=== PATIENT | female | born 1940 | race Caucasian/White ===

== ENCOUNTER 2018-07-10 13:27 | Outpatient (CLI) | payer MEDICARE, BC ==
--- NOTE | 2018-07-10 15:03 | RAD ---
PA AND LATERAL CHEST: Date: 07/10/18 HISTORY: Pulmonary mass. COMPARISON: 04/26/13. FINDINGS: Cardiac silhouette and pulmonary vasculature are within normal limits. There is a mass-like opacity seen within the posterior aspect of the left lower lobe with slightly ir regular margins. This measures approximately 5.7 cm in maximal dimensions. No definite additional mas s is seen, although there is a questionable nodular density overlying the left mid lung zone. There i s mild increased interstitial density, probably related to mild chronic lung changes. No pleural effu parvez is seen. Vascular calcifications are seen in the thoracic aorta. There are degenerative changes in the spine. No other interval change. IMPRESSION: 1. Mass-like opacity left lower lobe. Further evaluation with CT scan thorax is recommended. 2. Mild chronic lung changes. CODE T. POS: [facility]
== END 2018-07-10 13:28 | disposition home or self-care (01) ==
LOC: CP 13:27
PROVIDERS: ATTEND Internal Medicine
DX: R91.8 Other nonspecific abnormal finding of lung field (principal); M06.9 Rheumatoid arthritis, unspecified
CPT/HCPCS: 71046; 94010; 94727; 94729

== ENCOUNTER 2018-07-21 14:04 | Outpatient (CLI) | payer MEDICARE, BC ==
[2018-07-21 15:42] LABS: Hemoglobin 14.1 g/dL (12.0-16.0); Mean Corpuscular HGB CONC 33.1 g/dL (32.0-36.0); Mean Corpuscular Hemoglobin 30.8 pg (27.0-31.0); Mean Corpuscular Volume 93.1 fL (78.0-98.0); Mean Platelet Volume 8.2 fL (7.4-10.4); Platelet Count 252 thou/uL (130-400); Red Blood Cell (RBC) Count 4.57 mill/uL (4.20-5.40); White Blood Cell (WBC) Count 6.1 thou/uL (4.8-10.8)
[2018-07-21 15:48] LABS: Prothrombin Time 13.6 SEC (12.0-14.7)
[2018-07-21 16:11] LABS: Anion Gap 12 mmol/L (10-20); BUN (Urea Nitrogen) 23 mg/dL (9.8-20.1); Calc. Creatinine Clearance 0 mL/min (70-130); Calcium 9.5 mg/dL (7.8-10.44); Carbon Dioxide 27 mmol/L (23-31); Chloride 102 mmol/L (98-107); Estimated GFR-MDRD 31; Glucose 255 mg/dL (83-110); Potassium 4.3 mmol/L (3.5-5.1); Sodium 137 mmol/L (136-145)
--- NOTE | 2018-07-22 17:43 | EKG ---
Test Reason : Blood Pressure : / mmHG Vent. Rate : 076 BPM Atrial Rate : 076 BPM P-R Int : 168 ms QRS Dur : 078 ms QT Int : 390 ms P-R-T Axes : 042 -66 032 degrees QTc Int : 438 ms Normal sinus rhythm Left anterior fascicular block Minimal voltage criteria for LVH, may be normal variant Anteroseptal infarct (cited on or before 26-APR-2013) Abnormal ECG When compared with ECG of 26-APR-2013 17:34, Sinus rhythm has replaced Junctional rhythm Questionable change in initial forces of Anterior leads Confirmed by DR. Elvis MILLAN ([id number]) on 07/22/2018 5:42:44 PM Referred By: DENISSE Confirmed By:DR. Elvis MILLAN
== END 2018-07-21 14:05 | disposition home or self-care (01) ==
LOC: LABBT 14:04
PROVIDERS: ATTEND Thoracic Surgery (Cardiothoracic Vascular Surgery)
DX: Z01.818 Encounter for other preprocedural examination (principal); R91.8 Other nonspecific abnormal finding of lung field
CPT/HCPCS: 80048; 85027; 85610; 85730; 86850; 86900; 86901; 93005; 93010

== ENCOUNTER 2018-07-21 14:30 | Inpatient (IN) | payer MEDICARE, BC ==
[2018-07-22] MEDS ORDERED: CEFAZOLIN/Water 2 GM/20 ML SYRINGE ONE (06:23)
[2018-07-22] MEDS ORDERED: Bupivacaine/Epinephrine 0.25% 30 ML VIAL ONE (06:30)
[2018-07-22] MEDS ORDERED: Fentanyl 100 MCG/2 ML VIAL ONE ×4 (06:30→11:30)
[2018-07-22] MEDS ORDERED: Midazolam HCl 2 mg/2 ml Vial ONE (06:30)
[2018-07-22] MEDS ORDERED: Lidocaine 1% w/Epinephrine 1:100K 30 ML VIAL ONE (08:20)
[2018-07-22] MEDS ORDERED: Promethazine HCl 25 MG/ML VIAL SLOW IVP PRN ×2 (10:31→11:14)
[2018-07-22] MEDS ORDERED: Ondansetron HCl/PF 4 MG/2 ML Vial IVP PRN ×3 (10:31→11:15)
[2018-07-22] MEDS ORDERED: HYDROcodone/Acetaminophen 5/325 mg Tablet PO PRN ×4 (10:31→11:15)
[2018-07-22] MEDS ORDERED: Fentanyl 100 MCG/2 ML VIAL SLOW IVP PRN ×2 (10:31)
[2018-07-22] MEDS ORDERED: Phenylephrine 10 MG/NS 250 ML 250 ML IVPB PRN (10:31)
[2018-07-22] MEDS ORDERED: Ketorolac Tromethamine 30 MG/ML VIAL IVP PRN ×2 (10:34→11:14)
[2018-07-22] MEDS ORDERED: Promethazine HCl 25 MG/ML VIAL IM PRN ×2 (11:14→11:15)
[2018-07-22] MEDS ORDERED: traMADol HCl 50 MG TAB PO PRN (11:15)
[2018-07-22] MEDS ORDERED: diphenhydrAMINE 50 MG/ML VIAL IM PRN (11:15)
[2018-07-22] MEDS ORDERED: fentaNYL Citrate/PF 1,250 MCG, Bupivacaine 25 ML in Sodium Chloride 0.9% 250 ML 200 ML EPIDURAL SCH (11:15)
[2018-07-22] MEDS ORDERED: Naloxone HCl 0.4 mg/ml Vial IV PRN (11:15)
[2018-07-22] MEDS ORDERED: Naloxone HCl 0.4 mg/ml Vial IVP PRN (11:15)
[2018-07-22] MEDS ORDERED: Promethazine HCl 25 MG SUPP PR PRN (11:15)
[2018-07-22] MEDS ORDERED: diphenhydrAMINE 50 MG/ML VIAL IVP PRN (11:15)
[2018-07-22] MEDS ORDERED: diphenhydrAMINE 25 MG CAP PO PRN (11:15)
[2018-07-22] MEDS ORDERED: Bupivacaine 0.25% 10 ML VIAL EPIDURAL PRN (11:15)
[2018-07-22] MEDS ORDERED: Zolpidem Tartrate 5 MG TAB PO PRN (11:15)
[2018-07-22] MEDS ORDERED: Hydrocerin (Eucerin) Cream 120 gm Jar TOP PRN (11:15)
--- NOTE | 2018-07-22 11:23 | OP ---
DATE OF PROCEDURE: 07/22/2018 PREOPERATIVE DIAGNOSIS: Left lower lobe mass. POSTOPERATIVE DIAGNOSIS: Left lower lobe mass. PROCEDURE: Left lower lobectomy. SURGEON: James Chand M.D. ANESTHESIA: General. ESTIMATED BLOOD LOSS: 200 mL. TRANSFUSION: None. PROCEDURE IN DETAIL: After adequate anesthesia had been obtained, the patient was placed in the righ t lateral decubitus position. Muscle sparing posterolateral thoracotomy was carried out and the sixt h interspace was chosen for entry. Following this, the patient's left lower lobe was adherent to the diaphragm. This was taken down with Bovie cryptographic machine operator including the parietal pleura on the diaphragm . Following this, the inferior pulmonary ligament was mobilized. At that time, the patient had note d to have a large mass. An incisional biopsy was performed and sent for frozen section and this was nondiagnostic. It was then elected to do a lobectomy, which was carried out. The patient had a christ rely calcified group of lymph nodes overlying the pulmonary vessels to the superior segment. This wa s tediously taken down, ultimately being able to fire the vascular load on this pair of vessels. Fol lowing this, the fissure was difficult to identify and was incomplete and 3 load of stapler green earle d were used to complete the fissure. Following this, the inferior pulmonary ligament was divided wit h a vascular stapler and then the remaining bronchus to the lower lobe. Part of the bronchus had bee n taken down with the green load and this had no air leak. Following this, an apical pleural tent wa s mobilized to allow for space concerns. Two chest tubes were then placed following which the ribs w ere reapproximated with #1 Catgut suture double stranded in a [id number] fashion x3. Muscle lay ers were loosely reapproximated in subcutaneous tissue and skin were closed in layers.
[2018-07-22] MEDS ORDERED: Ketorolac Tromethamine 30 MG/ML VIAL ONE (11:37)
[2018-07-22] MEDS ORDERED: hydrALAZINE 20 MG/ML VIAL ONE (11:37)
--- NOTE | 2018-07-22 12:48 | RAD ---
PORTABLE CHES: Date: 07/22/18 PROVIDED CLINICAL HISTORY: Status post thoracotomy. COMPARISON: 07/10/18. FINDINGS: Interval placement of left-sided chest tube. Cardiac and mediastinal silhouette is not well evaluated due to patient rotation. Additional left-sided chest tube is noted overlying the left lower chest. L inear parenchymal opacity is seen at the right lung base suggesting volume loss. Evaluation for pleur al fluid and pneumothorax is limited given the supine nature of the study. IMPRESSION: Left-sided chest tubes have been placed in the interim. POS: [facility]
[2018-07-22] MEDS: Sodium Chloride 0.9% 1,000 ML IV SCH ×2 (13:20→22:18)
[2018-07-22] MEDS: CEFAZOLIN/Water 2 GM/20 ML SYRINGE SLOW IVP SCH ×2 (14:42→22:18)
[2018-07-22] MEDS: Insulin Regular 300 UNITS/3 ML VIAL SC PRN ×2 (16:18→21:53)
[2018-07-22] MEDS ORDERED: Insulin Regular 300 UNITS/3 ML VIAL ONE (16:23)
--- NOTE | 2018-07-22 19:08 | CON ---
DATE OF CONSULTATION: 07/22/2018 Ms. Stanley is a pleasant woman who earlier this year was diagnosed with pneumonia and an incidental finding was a lung mass. Once she had recovered from her pneumonia, further workup with a lung mass was begun. PFTs preoperatively were normal. Today, she underwent a lobectomy for resection of this mass. We are consulted because of her postop presence in the Critical Care Unit. PAST MEDICAL HISTORY: 1. Remarkable for having an unremarkable chest radiograph 2 years ago. 2. History of rheumatoid arthritis. 3. History of hypertension. 4. History of cataract surgery. 5. History of a D and C. FAMILY HISTORY: Positive for lung cancer. SOCIAL HISTORY: She is nonsmoker, nondrinker. REVIEW OF SYSTEMS: 10 point review of system completed; not obtainable. She is somnolent postoperatively. She has an epidural in place. PHYSICAL EXAMINATION: VITAL SIGNS: Blood pressure is 136/75, heart rate 92, respiratory rate was in the teens. HEENT: Pupils are reactive. Sclerae is anicteric. GENERAL: She moves all extremities. LUNGS: Clear. HEART: Regular rhythm. S1 and S2 are normal. ABDOMEN: Soft and nontender. EXTREMITIES: Without clubbing, cyanosis, or edema. NEUROLOGIC: Grossly nonfocal. LABORATORY DATA: Preoperative electrolytes are normal. Preop creatinine was 1.61, yesterday, was 1.28 in November, 1.36 in February, 1.44 in May. IMPRESSION: 1. Status post lobectomy for a lung mass. Pathology is pending. 2. Chronic kidney disease. 3. History of rheumatoid arthritis. PLAN: Continue with the normal post-lobectomy care with her epidural and chest tube suction. She has no air leak at this time. Chest radiograph shows chest tubes on the left. No pneumothorax was seen. This is a 50-minute consult, with greater than 50% of the time was spent on the unit coordinating care. [facility]
[2018-07-23 05:30] LABS: #Lymphocytes 0.8 thou/uL (1.20-3.40); #Monocytes 0.8 thou/uL (0.11-0.59); #Neutrophils 8.2 thou/uL (1.40-6.50); %Basophils 0.4 % (0.0-1.0); %Eosinophils 0.2 % (0.0-10.0); %Lymphocytes 8.4 % (21.0-51.0); %Monocytes 7.8 % (0.0-10.0); %Neutrophils 83.2 % (42.0-75.0); Hemoglobin 12.3 g/dL (12.0-16.0); Mean Corpuscular HGB CONC 33.1 g/dL (32.0-36.0); Mean Corpuscular Hemoglobin 31.2 pg (27.0-31.0); Mean Corpuscular Volume 94.3 fL (78.0-98.0); Mean Platelet Volume 7.9 fL (7.4-10.4); Platelet Count 213 thou/uL (130-400); RBC Distribution Width 14.1 % (11.5-14.5); Red Blood Cell (RBC) Count 3.94 mill/uL (4.20-5.40); White Blood Cell (WBC) Count 9.9 thou/uL (4.8-10.8)
[2018-07-23 05:55] LABS: Anion Gap 9 mmol/L (10-20); BUN (Urea Nitrogen) 23 mg/dL (9.8-20.1); Calc. Creatinine Clearance 48 mL/min (70-130); Calcium 7.7 mg/dL (7.8-10.44); Carbon Dioxide 24 mmol/L (23-31); Chloride 109 mmol/L (98-107); Estimated GFR-MDRD 46; Glucose 175 mg/dL (83-110); Potassium 4.5 mmol/L (3.5-5.1); Sodium 137 mmol/L (136-145)
[2018-07-23] MEDS: CEFAZOLIN/Water 2 GM/20 ML SYRINGE SLOW IVP SCH (06:39)
--- NOTE | 2018-07-23 08:15 | RAD ---
CHEST ONE VIEW: History: Status post thoracotomy. Comparison: 07-22-18 FINDINGS: Single upright chest redemonstrates a left sided chest tube. Worsening opacification in the lung pare nchyma. Stable configuration of the cardiac silhouette. Definite left sided pneumothorax is not appre ciated. IMPRESSION: Worsening opacification of the lung parenchyma. POS: [facility]
[2018-07-23] MEDS: Atorvastatin Calcium 20 MG TAB PO SCH (08:17)
[2018-07-23] MEDS: Acetaminophen 1,000 MG in Premix Bag 1 BAG IVPB SCH ×3 (11:39→23:40)
[2018-07-23] MEDS: Bupivacaine 10 ML in Sodium Chloride 0.9% 90 ML EPIDURAL SCH (12:21)
[2018-07-23] MEDS: Insulin Regular 300 UNITS/3 ML VIAL SC PRN ×2 (12:23→17:02)
--- NOTE | 2018-07-23 13:50 | PRG ---
DATE OF SERVICE: 07/23/2018 SERVICE: Pulmonary Medicine. INTERVAL HISTORY: The patient is doing fine from a respiratory standpoint. In the postop period, saqib crespo has had significant pain. Otherwise, there has not been much output from the chest tubes. She den ies any nausea or vomiting. She does have some pleuritic chest discomfort. Otherwise, there has bee n no interval change to her condition. Hemodynamically, she has remained stable and nursing reports no overnight events. PHYSICAL EXAMINATION: VITAL SIGNS: Afebrile, pulse 77, blood pressure 156/81, respirations 15, saturation 100% on 3 liters nasal cannula. HEENT: Normocephalic, atraumatic. Sclerae are white. Conjunctivae are pink. Oral mucosa is moist without lesions. LUNGS: Decent air entry. There is no prolonged expiratory phase. Crackles and rhonchi are present in the left lung. There are no crackles or rhonchi present on the right. HEART: Normal rate, regular. ABDOMEN: Soft, nontender, nondistended. Bowel sounds are positive. MUSCULOSKELETAL: No cyanosis or clubbing. There is no pitting in the bilateral lower extremities. NEUROLOGIC: Grossly nonfocal. LABORATORY DATA: WBC 9.9, hemoglobin 12.3, platelets 213,000. Creatinine 1.13, improved compared to prior. Basic metabolic profile is otherwise unremarkable. Blood sugar ranges from 166-221. Calciu m 7.7. IMAGING: Chest x-ray demonstrates chest tube x2 in the left. There is significant rotation. There is good aeration in the bilateral chest. No obvious pneumothorax is present. ASSESSMENT: 1. Pulmonary mass, status post left lobectomy with thoracotomy, postoperative day 1. 2. Rheumatoid arthritis. 3. Acute hypoxic respiratory failure, stable. DISCUSSION AND PLAN: The patient will remain in the ICU. Once she stops putting fluid from the ches t tube, these things will be removed. We will continue focusing our efforts on mobilizing the patien t. Currently, she has no obvious evidence of systemic inflammatory response. Pulmonary will continu e to follow along while she remains in this location. We will increase the amount of insulin we give her slightly.
[2018-07-23] MEDS ORDERED: hydrALAZINE 20 MG/ML VIAL SLOW IVP PRN (17:27)
[2018-07-23] MEDS ORDERED: Amlodipine 5 MG TAB PO SCH (17:30)
[2018-07-23] MEDS: Enoxaparin Sodium 30 MG/0.3 ML SYRINGE SC SCH (22:19)
[2018-07-24] MEDS: Bupivacaine 10 ML in Sodium Chloride 0.9% 90 ML EPIDURAL SCH ×2 (02:06→14:44)
[2018-07-24] MEDS: Acetaminophen 1,000 MG in Premix Bag 1 BAG IVPB SCH ×2 (05:27→12:53)
[2018-07-24] MEDS ORDERED: hydrALAZINE 10 MG TAB PO PRN (05:36)
[2018-07-24] MEDS ORDERED: Amlodipine 5 MG TAB PO SCH (09:00)
[2018-07-24] MEDS: Atorvastatin Calcium 20 MG TAB PO SCH (09:15)
[2018-07-24] MEDS ORDERED: Methotrexate Sodium 2.5 MG TAB PO SCH (11:15)
[2018-07-24] MEDS ORDERED: Donepezil HCl 5 MG TAB PO SCH (13:15)
--- NOTE | 2018-07-24 13:58 | PRG ---
DATE OF SERVICE: 07/24/2018 SERVICE: Pulmonary Medicine. INTERVAL HISTORY: The patient is doing great from a respiratory standpoint. That being said, she wa s confused last night. She is having some hallucinations and she is not certain about what the situa tion is or where she is. There has been no significant other changes to her condition. She indicate s not have any chest discomfort or shortness of breath at this point. Nursing reports no overnight e vents. PHYSICAL EXAMINATION: VITAL SIGNS: Afebrile, pulse 91, blood pressure 158/79, respirations 18, saturation 94% on room air. GENERAL: Patient is awake and alert, in no apparent distress. LUNGS: Decent air entry. There are no crackles present in bibasilar regions. HEART: Normal rate, regular. ABDOMEN: Soft, nontender, nondistended. Bowel sounds positive. MUSCULOSKELETAL: No cyanosis or clubbing. There is no pitting in the bilateral lower extremities. NEUROLOGIC: Grossly nonfocal. LABORATORY DATA: Blood sugars ranged from 151-214. Acid fast smear is negative to date. ASSESSMENT: 1. Pulmonary mass, status post left lower lobectomy using thoracotomy, postop day #2. 2. Rheumatoid arthritis. 3. Acute hypoxic respiratory failure, resolved. 4. Delirium superimposed on dementia. DISCUSSION AND PLAN: We will minimize our interventions with the patient. We can get rid of the oxy gen cannula today. Hopefully, the chest tube will come out soon. She is not eating enough fluid. W e supplement her hydration with half normal saline at 50 mL per hour. Physical therapy will be invol evangelist and will try to get her into a chair a couple times on a daily basis. Distractions in night will be minimized. Pulmonary and Critical Care will continue to follow along for the time being.
[2018-07-24] MEDS: Sodium Chloride 0.45% 1,000 ML IV SCH (14:50)
[2018-07-24] MEDS: Acetaminophen 500 MG TAB PO SCH (18:04)
[2018-07-24] MEDS: Insulin Regular 300 UNITS/3 ML VIAL SC PRN (18:13)
[2018-07-24 18:57] VITALS: BMI 27.2
[2018-07-24] MEDS: traMADol HCl 50 MG TAB PO PRN (21:53)
[2018-07-24] MEDS: Amlodipine 5 MG TAB PO SCH (21:53)
[2018-07-24] MEDS: Enoxaparin Sodium 30 MG/0.3 ML SYRINGE SC SCH (21:54)
[2018-07-25] MEDS: Acetaminophen 500 MG TAB PO SCH ×5 (00:02→23:38)
[2018-07-25] MEDS: Bupivacaine 10 ML in Sodium Chloride 0.9% 90 ML EPIDURAL SCH (04:25)
[2018-07-25] MEDS ORDERED: Donepezil HCl 5 MG TAB PO SCH (09:00)
[2018-07-25] MEDS ORDERED: OSTERA PO SCH (09:00)
[2018-07-25] MEDS: Atorvastatin Calcium 20 MG TAB PO SCH (09:57)
[2018-07-25] MEDS: Donepezil HCl 5 MG TAB PO SCH (09:58)
[2018-07-25] MEDS: Folic Acid 1 MG TAB PO SCH (09:58)
[2018-07-25] MEDS: Amlodipine 5 MG TAB PO SCH ×2 (09:58→21:58)
[2018-07-25] MEDS: Sodium Chloride 0.45% 1,000 ML IV SCH (10:04)
--- NOTE | 2018-07-25 12:06 | PRG ---
DATE OF SERVICE: 07/25/2018 SERVICE: Pulmonary Medicine INTERVAL HISTORY: The patient is doing fine from a respiratory standpoint. She denies any current c hest pain, nausea, vomiting, shortness of breath, fevers or chills. Her mentation is much improved. She continues to have a chest tube. PHYSICAL EXAMINATION: VITAL SIGNS: Afebrile, pulse 92, blood pressure 160/65, respirations 18, saturation 82% on room air. GENERAL: The patient is awake, alert, in no apparent distress. LUNGS: Good air entry bilaterally with no prolonged expiratory phase. There is no wheezing, rhonchi . There are some crackles present. HEART: Normal rate, regular. ABDOMEN: Soft, nontender, nondistended. Bowel sounds are positive. MUSCULOSKELETAL: No cyanosis or clubbing. No pitting in the bilateral lower extremities. NEUROLOGIC: Grossly nonfocal. LABORATORY DATA: WBC 9.9, hemoglobin 12.3, platelets 213,000. Blood sugar ranges from 151-187. Cul tures are negative to date. Pathology is currently pending. ASSESSMENT: 1. Pulmonary mass, status post left lower lobectomy. 2. Thoracotomy, postoperative day #3. 3. Rheumatoid arthritis. 4. Acute hypoxic respiratory failure. 5. Delirium, superimposed on dementia. DISCUSSION AND PLAN: Since her appetite has improved, I am going to discontinue her IV fluids. We a re waiting for the output to decrease so that the chest tube can be removed. Pulmonary Critical Care will continue to follow along in this location.
[2018-07-25] MEDS: Insulin Regular 300 UNITS/3 ML VIAL SC PRN ×3 (12:36→22:09)
[2018-07-25] MEDS ORDERED: Furosemide 40 MG TAB PO SCH (13:00)
[2018-07-25] MEDS: traMADol HCl 50 MG TAB PO PRN ×2 (16:07→21:57)
[2018-07-25] MEDS: Enoxaparin Sodium 30 MG/0.3 ML SYRINGE SC SCH (21:58)
[2018-07-26 05:40] LABS: Anion Gap 11 mmol/L (10-20); BUN (Urea Nitrogen) 23 mg/dL (9.8-20.1); Calc. Creatinine Clearance 52 mL/min (70-130); Calcium 8.4 mg/dL (7.8-10.44); Carbon Dioxide 25 mmol/L (23-31); Chloride 99 mmol/L (98-107); Estimated GFR-MDRD 50; Glucose 131 mg/dL (83-110); Potassium 3.4 mmol/L (3.5-5.1); Sodium 132 mmol/L (136-145)
[2018-07-26] MEDS: Acetaminophen 500 MG TAB PO SCH ×2 (05:56→11:28)
--- NOTE | 2018-07-26 07:45 | RAD ---
PORTABLE CHEST: Date: 07/26/18 PROVIDED CLINICAL HISTORY: Post lobectomy. FINDINGS: Comparison made with the study dated 07/23/18. Interval removal of left-sided chest tubes. Cardiac and mediastinal silhouette is unchanged in appear ance. There is pleural based density involving the lateral aspect of the left hemithorax. Right lung appears clear. There is no evidence for pneumothorax. Parenchymal opacity at the left lung base is kc spected. IMPRESSION: Left hemithoracic pleural and parenchymal opacity. Follow-up recommended. POS: [facility]
[2018-07-26] MEDS: traMADol HCl 50 MG TAB PO PRN (08:43)
[2018-07-26] MEDS: Amlodipine 5 MG TAB PO SCH ×2 (08:44→20:13)
[2018-07-26] MEDS: Folic Acid 1 MG TAB PO SCH (08:44)
[2018-07-26] MEDS: Atorvastatin Calcium 20 MG TAB PO SCH (08:44)
[2018-07-26] MEDS: Donepezil HCl 5 MG TAB PO SCH (08:44)
[2018-07-26] MEDS: Insulin Regular 300 UNITS/3 ML VIAL SC PRN (12:20)
[2018-07-26] MEDS ORDERED: predniSONE 20 MG TAB PO SCH (15:00)
[2018-07-26] MEDS ORDERED: Potassium Chloride 20 MEQ TAB PO SCH (15:00)
--- NOTE | 2018-07-26 15:04 | PRG ---
DATE OF SERVICE: 07/26/2018 SERVICE: Pulmonary Medicine. INTERVAL HISTORY: The patient is doing great from a respiratory standpoint. She got her chest tubes removed yesterday. This significantly improved her discomfort. She is able to walk to just past th e door. She had to sit down and rest and then was subsequently able to walk back to her room. She d enies any fevers or chills. There are no significant overnight events. She was a little hypoxemic e arlier and she started having increasing sputum production of thick yellow mucus. PHYSICAL EXAMINATION: VITAL SIGNS: Afebrile, pulse 84, blood pressure 104/69, respirations 14, saturation 96% on 1.5 liter s nasal cannula. GENERAL: The patient is awake and alert, in no apparent distress. LUNGS: Decent air entry. Dependent crackles are present. Some rhonchi are present. She has a hard time clearing them with cough. There is no prolonged expiratory phase or wheezing appreciated. HEART: Normal rate, regular. ABDOMEN: Soft, nontender, nondistended. Bowel sounds are positive. MUSCULOSKELETAL: No cyanosis or clubbing. There is no pitting in the bilateral lower extremities. NEUROLOGIC: Grossly nonfocal. LABORATORY DATA: Sodium 132, down trending and potassium 3.4. Creatinine 1.05 and stable. Basic nv tabolic profile is otherwise unremarkable. Blood sugar ranges from 156-213. Culture results remain negative to date. IMAGING: Chest x-ray demonstrates volume loss on the left. There is a pleural effusion on the left side. Chest tube has been removed with no obvious pneumothorax present. ASSESSMENT: 1. Pulmonary mass, status post left lower lobectomy. 2. Thoracotomy, postop day 3. 3. Rheumatoid arthritis. 4. Acute hypoxic respiratory failure. 5. Delirium, superimposed on dementia. DISCUSSION AND PLAN: I will give the patient a 5-day course of prednisone and a p.o. antibiotic. Po tassium will be replaced today. We will continue focusing efforts on mobilizing the patient. Pulmon foreign Critical Care will continue to follow along. The patient will need to remain in house for the ti me being.
[2018-07-26] MEDS: Enoxaparin Sodium 30 MG/0.3 ML SYRINGE SC SCH (20:13)
[2018-07-26] MEDS: guaiFENesin ER 600 MG TAB PO SCH (20:13)
[2018-07-26] MEDS: Senokot 8.6 MG TAB PO SCH (21:02)
[2018-07-27] MEDS: Atorvastatin Calcium 20 MG TAB PO SCH (08:22)
[2018-07-27] MEDS: Amlodipine 5 MG TAB PO SCH ×2 (08:23→20:21)
[2018-07-27] MEDS: Folic Acid 1 MG TAB PO SCH (08:23)
[2018-07-27] MEDS: Donepezil HCl 5 MG TAB PO SCH (08:24)
[2018-07-27] MEDS: predniSONE 20 MG TAB PO SCH (08:24)
[2018-07-27] MEDS: guaiFENesin ER 600 MG TAB PO SCH ×2 (08:25→20:19)
[2018-07-27] MEDS: Senokot 8.6 MG TAB PO SCH ×2 (08:25→20:20)
[2018-07-27] MEDS: traMADol HCl 50 MG TAB PO PRN ×2 (08:26→20:19)
--- NOTE | 2018-07-27 08:47 | RAD ---
PORTABLE CHEST: Date: 07/27/18 PROVIDED CLINICAL HISTORY: Lobectomy. FINDINGS: Comparison with 07/26/18. Interval increase in left hemithoracic pleural and parenchymal opacity previously described. Right grayson ng remains clear. There is no evidence for pneumothorax. Cardiac and mediastinal silhouette is not de finitely changed in appearance. IMPRESSION: Increasing left hemithoracic pleural and parenchymal opacity. POS: [facility]
[2018-07-27] MEDS ORDERED: Furosemide 40 MG TAB PO SCH (13:00)
--- NOTE | 2018-07-27 16:16 | PRG ---
DATE OF SERVICE: 07/27/2018 SERVICE: Pulmonary Medicine. INTERVAL HISTORY: The patient is doing fine from a respiratory standpoint. She is breathing comfort ably. Her pain is dramatically improved and her strength is much better today. She was able to walk with physical therapy and nursing staff on three separate occasions today. She was able to walk ove r 100 feet this time around. She has no specific complaints otherwise. There has been no interval c hange to her condition. She is being considered for transition out of the hospital tomorrow. PHYSICAL EXAMINATION: VITAL SIGNS: Afebrile, pulse 85, blood pressure 140/81, respirations 16, saturation 95% on 2 liters nasal cannula. GENERAL: The patient is awake, alert, no apparent distress. LUNGS: Excellent air entry. Rhonchi are present, but clear with cough today. There is no prolonged expiratory phase. Minimal dependent crackles are present. HEENT: Normocephalic, atraumatic. Sclerae are white, conjunctivae pink. Oral mucosa is moist witho ut lesions. HEART: Normal rate, regular. ABDOMEN: Soft, nontender, nondistended. Bowel sounds are positive. MUSCULOSKELETAL: No cyanosis or clubbing. There is no pitting in the bilateral lower extremities. NEUROLOGIC: Grossly nonfocal. IMAGING: Chest x-ray demonstrates left-sided pleural effusion which is slightly increased in size. ASSESSMENT: 1. Pulmonary mass, status post left lower lobectomy. 2. Thoracotomy, postop day #4. 3. Rheumatoid arthritis. 4. Acute hypoxic respiratory failure, resolved. 5. Delirium, superimposed on dementia, improving. DISCUSSION AND PLAN: We will continue our supportive measures moving forward. We will continue her mobilization efforts. We will need to repeat a chest x-ray in the outpatient setting in 4-[address], if she has increasing respiratory distress, a thoracentesis can be considered. I will continue to follow along.
[2018-07-27] MEDS: Enoxaparin Sodium 30 MG/0.3 ML SYRINGE SC SCH (20:18)
[2018-07-28] MEDS: traMADol HCl 50 MG TAB PO PRN (05:30)
[2018-07-28] MEDS: Senokot 8.6 MG TAB PO SCH (08:44)
[2018-07-28] MEDS: Atorvastatin Calcium 20 MG TAB PO SCH (08:45)
[2018-07-28] MEDS: Folic Acid 1 MG TAB PO SCH (08:45)
[2018-07-28] MEDS: Donepezil HCl 5 MG TAB PO SCH (08:45)
[2018-07-28] MEDS: Amlodipine 5 MG TAB PO SCH (08:45)
[2018-07-28] MEDS: predniSONE 20 MG TAB PO SCH (08:45)
[2018-07-28] MEDS: guaiFENesin ER 600 MG TAB PO SCH (08:45)
--- NOTE | 2018-07-28 09:25 | RAD ---
PORTABLE CHEST: HISTORY: Post lobectomy. COMPARISON: A 07/27/18 study. FINDINGS: The pleural and parenchymal changes in the left lung are stable as compared to the prior examination. The right lung remains clear. IMPRESSION: Stable exam. POS: [facility]
--- NOTE | 2018-07-28 10:14 | DIS ---
DATE OF ADMISSION: 07/22/2018 DATE OF DISCHARGE: 07/28/2018 PRINCIPAL DIAGNOSIS: Left lower lobe mass. SECONDARY DIAGNOSES: Rheumatoid arthritis and dementia. PROCEDURES PERFORMED: Left lower lobectomy, 07/22/2018. HISTORY OF PRESENT ILLNESS: The patient is a mildly demented 78-year-old woman found to have a lung mass when she was admitted with pneumonia. She recovered from her procedure and preoperative evaluat ion failed to demonstrate any suggestion of metastatic disease and she appeared to have adequate card iopulmonary reserve. Incisional biopsy of the mass was inconclusive and it was opted to proceed with a formal lobectomy. She had a relatively uneventful postoperative recovery other than some issues r elated to inability to completely wean off of oxygen. She did have effusion reaccumulated after mago priti of her chest tubes, but she has been doing well enough that we are opting to discharge her home o n low flow oxygen with a plan to follow her x-rays and perform thoracentesis if it proves necessary. We are sending her home now to resume her home medications and with a prescription for tramadol as n eeded for pain. We will plan on seeing her in the office in about a week or two with another chest x -ray and Dr. Raines plans on following her up with another chest x-ray at about the 4-6 week nory. Pathology at the time of discharge is pending.
[2018-07-28 10:15] LABS: Fungus Stain Final report (.)
--- NOTE | 2018-07-28 12:21 | PRG ---
DATE OF SERVICE: 07/28/2018 SERVICE: Pulmonary Medicine. INTERVAL HISTORY: The patient is doing great from a respiratory standpoint. She requires a little b it of oxygen still. Otherwise, there has been no interval change to her condition. She is breathing comfortably and her strength is improving. PHYSICAL EXAMINATION: VITAL SIGNS: Afebrile, pulse 76, blood pressure 130/82, respirations 16, saturation 94% on 1 liter n martina cannula. GENERAL: The patient is awake and alert, in no apparent distress. LUNGS: Excellent air entry. There is decreased air entry at the left base. Otherwise, there is no prolonged expiratory phase or wheezing appreciated. HEART: Normal rate, regular. ABDOMEN: Soft, nontender, nondistended. Bowel sounds are positive. MUSCULOSKELETAL: No cyanosis or clubbing. There is no pitting in the bilateral lower extremities. NEUROLOGIC: Grossly nonfocal. ASSESSMENT: 1. Pulmonary mass, status post left lower lobectomy. 2. Thoracotomy, postop day 4. 3. Rheumatoid arthritis. 4. Acute hypoxic respiratory failure, resolved. 5. Delirium, superimposed on dementia, improving. DISCUSSION AND PLAN: We are awaiting the pathology results. From my perspective, the patient is sta ble for transition out of the hospital. She may need oxygen for a short period of time. I will have her return to clinic to see me in 2 weeks with a chest x-ray. If she remains in house, Pulmonary wi ll continue to follow, intermittently.
[2018-07-28] MEDS ORDERED: Magnesium Citrate 300 ML BOT PO SCH (13:45)
[2018-07-28 15:46] VITALS: BP 139/90; TEMP 98.2
== END 2018-07-28 17:55 | disposition home or self-care (01) | DRG 163 ==
LOC: SURG A 07-22 05:31 → CCU 07-22 11:20 → SURG B 07-23 18:41
PROVIDERS: ADMIT Thoracic Surgery (Cardiothoracic Vascular Surgery); ATTEND Thoracic Surgery (Cardiothoracic Vascular Surgery)
PROC: 0BTJ0ZZ Resection of Left Lower Lung Lobe, Open Approach (ICD-10-PCS; principal; 2018-07-22)
DX: R91.8 Other nonspecific abnormal finding of lung field (principal); J96.01 Acute respiratory failure with hypoxia; M06.9 Rheumatoid arthritis, unspecified; F03.90 Unspecified dementia, unspecified severity, without behavioral disturbance, psychotic disturbance, mood disturbance, and anxiety; I12.9 Hypertensive chronic kidney disease with stage 1 through stage 4 chronic kidney disease, or unspecified chronic kidney disease; N18.9 Chronic kidney disease, unspecified
CPT/HCPCS: 36415; 36416; 71045; 80048; 85025; 85027; 85610; 85730; 86850; 86900; 86901; 87070; 87102; 87116; 87205; 87206; 88184; 88305; 88309; 88311; 88331; 88341; 88342; 88360; 93005; 93010; A4216; G8978-GP-CL; G8979-GP-CJ; J0131; J0360; J1642; J1650; J1815; J1885; J2001; J2250; J2405; J2550; J3010; J3490; J7050; J7506; J7620; J8610

== ENCOUNTER 2018-08-07 11:38 | Outpatient (CLI) | payer MEDICARE, BC ==
--- NOTE | 2018-08-07 17:10 | PET ---
PET CT: HISTORY: 78-year-old female with diffuse large B-cell lymphoma, found on left lower lobe resection. Exam reque sted for initial staging. FINDINGS: Correlation is made with the CT chest dated 06/02/18 from [facility] in [place], [place]. No paul hypermetabolism is seen in the neck, mediastinum, hilar regions, axilla, abdomen, pelvis, or inguinal regions. No hypermetabolic liver, adrenal, splenic, or skeletal lesions are seen. There is a focal mass-like area of consolidation in the right lower lobe, which is new since the CT s can of 06/02/18, and demonstrates increased FDG localization with a SUV of 5.9. There is another new 1.0 cm focal hypermetabolic nodule in the left lung base with a SUV of 3.4, which was also not seen o n the previous CT scan. Increased uptake in the left chest wall is secondary to rib fractures from t horacotomy. There is physiologic activity in the GI and tracts, visualized portions of the brain, and some of the muscles. The CT scan used for attenuation correction demonstrates no significant pleural effusions or ascites. A cyst is seen in the liver. IMPRESSION: Indeterminate findings in the lower lung sesay, which may either be due to infection or lymphoma. A follow-up CT scan 2 weeks after a course of IV antibiotics would be helpful. A Deauville criteria sco re can be assigned at that time. POS: [facility]
== END 2018-08-07 11:39 | disposition home or self-care (01) ==
LOC: PET 11:38
PROVIDERS: ATTEND Internal Medicine Hematology & Oncology
DX: C83.30 Diffuse large B-cell lymphoma, unspecified site (principal)
CPT/HCPCS: 78815; A9552

== ENCOUNTER 2018-08-14 12:42 | Outpatient (CLI) | payer MEDICARE, BC | END 2018-08-14 12:43 | disposition home or self-care (01) | LOC: ULT 12:42 | PROVIDERS: ATTEND Internal Medicine Rheumatology | DX: Z51.11 Encounter for antineoplastic chemotherapy (principal); C83.32 Diffuse large B-cell lymphoma, intrathoracic lymph nodes; I08.2 Rheumatic disorders of both aortic and tricuspid valves; Z79.899 Other long term (current) drug therapy | CPT/HCPCS: 93306 ==

== ENCOUNTER 2018-08-25 11:19 | Day surgery (SDC) | payer MEDICARE, BC ==
[2018-08-22 13:09] VITALS: BMI 26.6
[2018-08-25] MEDS ORDERED: CEFAZOLIN/Water 2 GM/20 ML SYRINGE ONE (12:08)
[2018-08-25] MEDS ORDERED: Fentanyl 100 MCG/2 ML VIAL ONE (12:29)
[2018-08-25] MEDS ORDERED: Midazolam HCl 2 mg/2 ml Vial ONE (12:29)
[2018-08-25] MEDS ORDERED: Bupivacaine/Epinephrine 0.25% 30 ML VIAL ONE (12:40)
[2018-08-25] MEDS ORDERED: Lidocaine 2% w/Epinephrine 1:200K 20 ML VIAL ONE (12:40)
[2018-08-25] MEDS ORDERED: Lidocaine 2% PF Inj 2 ML VIAL ONE ×2 (12:42→12:43)
[2018-08-25] MEDS ORDERED: Lidocaine 1% (PF) 30 ML VIAL ONE (12:42)
--- NOTE | 2018-08-25 14:11 | OP ---
DATE OF PROCEDURE: 08/25/2018 PREOPERATIVE DIAGNOSIS: Lymphoma. POSTOPERATIVE DIAGNOSIS: Lymphoma. PROCEDURE: Tunneled central line subcutaneous port (MediPort). SURGEON: Jairo Arredondo M.D. ANESTHESIA: General. ESTIMATED BLOOD LOSS: Minimal. COMPLICATIONS: None. SPECIMEN: None. FINDINGS: Tip of the catheter is at the atriocaval junction. TECHNIQUE: The patient was taken to the operating room and placed supine on the table. After sedati on was obtained, bilateral neck and chest were prepped and draped in a sterile fashion. Local anesth etic infiltrated into the right internal jugular vein. Internal jugular vein cannulated using a 22-g auge finder needle followed by a Seldinger needle. Wire was passed into the superior vena cava under fluoroscopic guidance. A small che was made at the wire entrance site and a separate 3-cm incision made in the right upper chest. Subcutaneous pocket made below the lower incision. Tubing for the M ediPort tunneled from the inferior to superior incision and suture sheath was placed over the wire in to the superior vena cava under fluoroscopy guidance. A dilator and wire removed. The end of the ca theter shredded into the sheath, as the sheath was peeled away. The tip of the catheter was at the a triocaval junction. MediPort tubing cut to fit the MediPort at the lower incision. The MediPort was sewn to the chest wall and subcutaneous pocket using Prolene. The wounds were irrigated and MediPor t was flushed with a heparin flush. The wounds were closed using 3-0 Vicryl, 4-0 Monocryl, and Toppers ibarra. The patient went to recovery room in stable condition. All instrument counts, needle counts, lap counts were correct.
--- NOTE | 2018-08-25 15:22 | RAD ---
RADIOGRAPH CHEST 1 VIEW: Date: 08/25/2018. Time: 1:12 p.m. HISTORY: An 78-year-old female status post MediPort placement. COMPARISON: 07/27/2018. FINDINGS: There is a new right-sided vascular access port descending vertically from the right neck, with dista l tip overlying the expected location of the SVC. There is no pneumothorax. There is a new, approxi mately 3.5 x 2.5 cm slightly ill-defined focal opacity at the right lateral lung base. Again demonst rated is the mildly elevated left hemidiaphragm, and diffuse haziness of the left lower lung zone. T he left lower lobe pulmonary mass demonstrated on previous chest CT of 06/01/2018 is not visible on th is single AP view. No pulmonary edema or cardiomegaly. IMPRESSION: 1. Status post interval right internal jugular implantable vascular access port placement without pn eumothorax. 2. New small opacity at right lateral lung base, either neoplastic tumor or mild infiltrate. 3. Chronic-appearing changes at the left lung base. MARTY [] POS: [facility]
== END 2018-08-25 15:35 | disposition home or self-care (01) ==
LOC: SDC 11:19
PROVIDERS: ATTEND Surgery
PROC: 0JH63WZ Insertion of Totally Implantable Vascular Access Device into Chest Subcutaneous Tissue and Fascia, Percutaneous Approach (ICD-10-PCS; principal; 2018-08-25)
DX: C85.90 Non-Hodgkin lymphoma, unspecified, unspecified site (principal); E78.00 Pure hypercholesterolemia, unspecified; I10 Essential (primary) hypertension; M19.90 Unspecified osteoarthritis, unspecified site; Z87.891 Personal history of nicotine dependence; Z79.82 Long term (current) use of aspirin; Z79.83 Long term (current) use of bisphosphonates; Z79.899 Other long term (current) drug therapy; Z88.5 Allergy status to narcotic agent; Z88.8 Allergy status to other drugs, medicaments and biological substances
CPT/HCPCS: 71045; C1788; J1642; J2001; J2250; J3010

== ENCOUNTER 2018-11-27 08:40 | Outpatient (CLI) | payer MEDICARE, BC ==
--- NOTE | 2018-11-27 12:15 | PET ---
PET SCAN WITH CT ATTENUATION CORRECTION: HISTORY: Diffuse large B-cell lymphoma. COMPARISON: 08/07/18. TECHNIQUE: PET scanning with CT attenuation correction is performed from the base of the brain to the proximal t highs following the intravenous administration of 11.1 mCi F18-FDG. FINDINGS: HEAD/NECK: No abnormal FDG localization. CHEST: There is no abnormal FDG localization in the mediastinum. CT used for attenuation correction demonstr ates chronic changes of the lung parenchyma. The previously noted FDG localization in the right lower lobe is less evident on the current examination. Currently, the maximum SUV is 2.4. Previously, the maximum SUV was 5.2. There is abnormal FDG localization involving the left chest wall, as well as the adjacent left ribs. There is evidence of deformity of the ribs, likely representing fracture. FDG lo calization in this region was previously 3.8. There is no abnormal FDG localization in the left lung parenchyma. Postsurgical changes with left lung resection are noted. ABDOMEN/PELVIS: No abnormal FDG localization. OSSEOUS STRUCTURES: No abnormal FDG localization. IMPRESSION: 1. No abnormal FDG localization in the lung parenchyma. The previously noted FDG avidity in the righ t lower lobe is less evident. 2. There are presumed post-traumatic/postsurgical changes in the left chest wall and left ribs. 3. At this time, a Deauville criteria score is not assigned. POS: [facility]
== END 2018-11-27 08:41 | disposition home or self-care (01) ==
LOC: PET 08:40
PROVIDERS: ATTEND Internal Medicine Hematology & Oncology
DX: C85.90 Non-Hodgkin lymphoma, unspecified, unspecified site (principal)
CPT/HCPCS: 78815; A9552

== ENCOUNTER 2019-05-19 10:02 | Outpatient (CLI) | payer MEDICARE, BC ==
--- NOTE | 2019-05-19 10:22 | RAD ---
EXAM: Chest PA and lateral: HISTORY: Diffuse large B-cell lymphoma. Intrathoracic lymph nodes. COMPARISON: 08/25/2018 Correlation: Pet imaging 11/27/2018 FINDINGS: Heart: Normal cardiac silhouette Aorta: Atherosclerosis Pulmonary vessels: Normal Costophrenic angles: Costophrenic angles are clear. Lungs: Chronic changes lung parenchyma. Previously noted focal opacity in the right lower lobe is les s evident radiographically. Based on lateral projection, there does appear to be increased density in the left lower lobe. Pneumothorax: No pneumothorax Osseous structures: No osseous abnormalities IMPRESSION: 1. Chronic changes lung parenchyma 2. Previously noted focal opacity in the right lower lobe is less evident. 3. There does appear to be increased density left lower lobe. Correlate for infiltrate.
== END 2019-05-19 10:03 | disposition home or self-care (01) ==
LOC: BICRAD 10:02
PROVIDERS: ATTEND Internal Medicine Hematology & Oncology
DX: C83.32 Diffuse large B-cell lymphoma, intrathoracic lymph nodes (principal); M05.79 Rheumatoid arthritis with rheumatoid factor of multiple sites without organ or systems involvement; R91.8 Other nonspecific abnormal finding of lung field
CPT/HCPCS: 71046

== ENCOUNTER 2019-09-01 09:25 | Outpatient (CLI) | payer MEDICARE, BC ==
--- NOTE | 2019-09-01 10:10 | BD ---
DEXA BONE DENSITY SCAN: DATE: 09/01/2019. COMPARISON: None. HISTORY: Postmenopausal female undergoing screening for osteoporosis. FINDINGS: Lumbar Spine: BMD (g/cm2) L1 0.805 T-Score: -1.7 L2 0.980 T-Score: -0.4 L3 1.555 T-Score: 0.6 L4 1.145 T-Score: 0.8 L1-L4 1.034 T-Score: -0.1 Left: Femoral Neck: 0.657 T-Score: -1.7 Total Femur: 0.890 T-Score: -0.4 Right: Femoral Neck: 0.634 T-Score: -1.9 Total Femur: 0.852 T-Score: -0.7 The FRAX-WHO fracture risk assessment tool reports a risk for major osteoporotic fracture at 28-30% i n an untreated patient and risk for hip fracture at 9.6-11% in an untreated patient. IMPRESSION: Osteopenia within the bilateral femoral neck, correlating with a moderately increased risk for fractu re. Overall lumbar spine bone mineral density is normal. Transcribed Date/Time: 09/01/2019 10:24 AM
== END 2019-09-01 09:26 | disposition home or self-care (01) ==
LOC: BICMAMMO 09:25
PROVIDERS: ATTEND Internal Medicine Rheumatology
DX: M81.0 Age-related osteoporosis without current pathological fracture (principal); M85.89 Other specified disorders of bone density and structure, multiple sites
CPT/HCPCS: 77080

== ENCOUNTER 2019-10-02 08:03 | Emergency (ER) | payer MEDICARE, BC ==
[2019-10-02] MEDS ORDERED: Ketorolac Tromethamine 30 MG/ML VIAL ONE (08:40)
[2019-10-02] MEDS ORDERED: Ondansetron PF 4 MG/2 ML Vial ONE (08:40)
[2019-10-02] MEDS ORDERED: Ondansetron ODT 4 MG TAB ONE (08:41)
--- NOTE | 2019-10-02 08:59 | CT ---
CT CERVICAL SPINE WITHOUT CONTRAST: HISTORY: Pain. COMPARISON: None. FINDINGS: No craniocervical dissociation. Appropriate alignment of the lateral masses of C1 and C2. Intact odon toid process. Appropriate alignment of the facets. Soft tissue neck structures: No mass, lymphadenopathy or hematoma. No prevertebral soft tissue swelli ng. Upper mediastinum and lung apices: Upper mediastinum is unremarkable. There appear to be chronic lezama ges in the visualized lung parenchyma. Areas of scarring are noted. Central spinal canal: C2-C3: Central disc osteophyte without significant central canal stenosis. Bilaterally the neural for bradley are patent. C3-C4: 3 mm of anterolisthesis. No significant central canal stenosis. Severe right neural foraminal narrowing due to uncovertebral and facet hypertrophy. Left neural foramen is patent. C4-C5: No significant central canal stenosis or significant neural foraminal narrowing. C5-C6: Central disc protrusion makes contact with the thecal sac. Mild central canal stenosis. Modera te right neural foraminal narrowing due to uncovertebral hypertrophy. Left neural foramen is patent. C6-C7: No significant central canal stenosis. Right neural foramen is patent. Moderate left foraminal narrowing due to uncovertebral hypertrophy. C7-T1: No significant central canal stenosis or significant foraminal narrowing. Vertebral bodies: Cervical spine vertebral body height is maintained. No fracture. IMPRESSION: 1. No fracture. 2. Varying degrees of central canal stenosis and neural foraminal narrowing as described above. Transcribed Date/Time: 10/02/2019 9:04 AM
== END 2019-10-02 09:38 | disposition home or self-care (01) ==
LOC: ERS 08:03
DX: M48.02 Spinal stenosis, cervical region (principal); E11.9 Type 2 diabetes mellitus without complications; I10 Essential (primary) hypertension; Z86.73 Personal history of transient ischemic attack (TIA), and cerebral infarction without residual deficits; Z79.82 Long term (current) use of aspirin; Z79.899 Other long term (current) drug therapy; Z87.891 Personal history of nicotine dependence; Z79.84 Long term (current) use of oral hypoglycemic drugs
CPT/HCPCS: 72125; 96372; J1885; J2405; Q0162

== ENCOUNTER 2019-10-15 08:13 | Outpatient (CLI) | payer MEDICARE, BC ==
--- NOTE | 2019-10-15 12:02 | PET ---
PET CT: HISTORY: An 79-year-old female with diffuse large B cell lymphoma status post chemo with last chemotherapy on 10/28/2018. Exam requested for subsequent treatment and restaging. COMPARISON: PET CT of 11/27/2018. TECHNIQUE: PET scanning with CT attenuation correction was performed from the base of the brain through the prox imal thighs following the intravenous administration of 10.8 millicuries F18 fluorodeoxyglucose in th e left antecubital fossa. FINDINGS: No paul hypermetabolism is seen in the neck, chest, axillae, abdomen, pelvis or inguinal regions. No hypermetabolic pulmonary nodules or liver, adrenal or skeletal lesions are seen. There is increased FDG localization and patchy infiltrates in the peripheral aspect of the right uppe r lobe with an SUV of 4.3. There is physiologic activity in the GI and tracts, heart and visualized portions of the brain. IMPRESSION: 1. No evidence of viable lymphoma. 2. Patchy uptake in the right upper lobe, suspicious for pneumonia/pneumonitis. POS: [facility]
== END 2019-10-15 08:14 | disposition home or self-care (01) ==
LOC: PET 08:13
PROVIDERS: ATTEND Internal Medicine Hematology & Oncology
DX: C83.30 Diffuse large B-cell lymphoma, unspecified site (principal); R91.8 Other nonspecific abnormal finding of lung field
CPT/HCPCS: 78815; A9552